=== PATIENT | male | born 1950 | race Caucasian/White ===

== ENCOUNTER 2025-06-20 15:09 | Inpatient (IN) | payer OTHER, SELFPAY ==
[2025-06-19 20:39] VITALS: BP 132/63
[2025-06-19 21:31] VITALS: BMI 22.2
[2025-06-19 21:46] LABS: Hematocrit 40.1 % (39.0-52.0); Hemoglobin 13.5 g/dL (13.0-18.0); Mean Corp Hgb Conc. 33.7 g/dL (33.0-37.0); Mean Corpuscular Volume 92.2 fL (80.0-94.0); Nucleated Red Blood Cells % 0 % (-); Platelet Count 263 10^3/uL (130-400); Red Cell Dist. Width 13.9 % (11.5-14.5)
[2025-06-19 22:22] LABS: ALT (SGPT) < 10 U/L (0-50); AST (SGOT) 14 U/L (17-59); Albumin 4.2 g/dl (3.5-5.0); Alkaline Phosphatase 77 U/L (38-126); Blood Urea Nitrogen 21 mg/dl (9-20); Calcium 9.5 mg/dl (8.4-10.2); Carbon Dioxide 30 mmol/L (22-30); Chloride 105 mmol/L (98-107); Estimated Creatinine Clearance 81 ml/min; Glucose 104 mg/dl (70-99); Potassium 4.1 mmol/L (3.5-5.1); Sodium 139 mmol/L (135-145); Total Protein 7.2 g/dl (6.3-8.2); eGFR > 60.00
[2025-06-19 23:00] VITALS: BP 139/68
[2025-06-20] VITALS (21 sets, daily range): BP systolic 86–142; BP diastolic 52–94; PULSE 76–78; O2SAT 99
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
[2025-06-20 01:11] LABS: Urine Character Clear (Clear)
--- NOTE | 2025-06-20 01:28 | EDRN ---
Pt does not know all the names/dosages of his medications. Old record from 2020 shows Atorvastatin, Carbidopa-Levodopa, clonazepam, Entacapone, Mirapes, omeprazole, trazodone, lisinopril, paxil, pravastatin
[2025-06-20] MEDS: ANCEF 10 IV ×3 (02:04→17:21)
[2025-06-20 03:11] LABS: Urine Squamous Cell None seen /LPF (Few)
[2025-06-20 03:12] LABS: Urine White Cell 0-2 /HPF (0-5)
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
[2025-06-20 05:34] LABS: Hematocrit 35.7 % (39.0-52.0); Hemoglobin 12.0 g/dL (13.0-18.0); Mean Corp Hgb Conc. 33.6 g/dL (33.0-37.0); Mean Corpuscular Volume 92.7 fL (80.0-94.0); Platelet Count 234 10^3/uL (130-400); Red Cell Dist. Width 13.9 % (11.5-14.5)
[2025-06-20] MEDS: NSS 1000 IV ×3 (05:43→17:21)
[2025-06-20 05:55] LABS: Blood Urea Nitrogen 18 mg/dl (9-20); Calcium 8.9 mg/dl (8.4-10.2); Carbon Dioxide 31 mmol/L (22-30); Chloride 108 mmol/L (98-107); Estimated Creatinine Clearance 92 ml/min; Glucose 98 mg/dl (70-99); Potassium 3.4 mmol/L (3.5-5.1); Sodium 141 mmol/L (135-145); eGFR > 60.00
--- NOTE | 2025-06-20 06:08 | PTCARENOTE ---
Pt extremely agitated. Pt demanding to go home, does not understand why he is in the hospital. Multiple attempts made to explain need for hospitalization. Pt states there is nothing wrong with him and he is able to drive himself home. Continued
emotional support and reality orientation provided. Pt finally settled down and resting. IVF infusing as ordered. Will continue to monitor.
[2025-06-20] MEDS: HALDOL 1 MG IV (06:34)
[2025-06-20] MEDS: VALIUM INJECTION 2 MG IV ×2 (06:45→18:59)
[2025-06-20 06:59] LABS: Cortisol, Random 10.3 ug/dl
[2025-06-20] MEDS: HEPARIN SC (07:56)
[2025-06-20] MEDS: ATIVAN 0.5 MG PO (07:57)
--- NOTE | 2025-06-20 08:00 | PTCARENOTE ---
report received from nightstnft RN, pt agitated- 1:1 at bedside. pt stated 'that he wants to ' and 'please just kill me' hospitalist notified order for pysch consult and pt given one time dose of ativan
--- NOTE | 2025-06-20 08:30 | PHANOTE ---
med rec note- called family on file whose on her way to help with medication list. patient comes in confused with tablets . I.D what i could in [facility] but most of the tablets have gunk on them. unable to finish med rec until family comes by
[2025-06-20] MEDS: SINEMET CR 50/200 (EXTENDED RELEASE) 1 TABLET PO ×2 (08:47→10:46)
[2025-06-20] MEDS: COMTAN 200 MG PO ×3 (08:47→22:44)
--- NOTE | 2025-06-20 09:31 | PTOTSP ---
Speech Therapy Evaluation:
Assessment of oropharyngeal swallow limited due to decreased participation in evaluation and limited acceptance of PO intake. Pt with chronic risk factor of dysphagia including Parkinson's, acutely compounded by change in mental status. Pt accepted
thin liquid x1 and regular cracker x1. No overt s/sx of aspiration, however cannot r/o pharyngeal component given above mentioned risk factors and CXR with pneumonia versus atelectasis. Suspect bedside performance likely a reflection of recent dose
of Ativan. Pt afebrile, WBC WNL, on room air, and without dysphagia hx.
Recommend:
1. Diet downgrade to IDDSI 6 (soft and bite sized solids); continue thin liquids
2. Only feed when fully awake, alert, accepting
3. Medications as best tolerated, can trial whole vs crushed in puree if ongoing difficulty noted
4. Strict aspiration precautions
5. 1:1 supervision with intake
6. BIOMETRIC FINGERPRINTING TECHNICIAN to follow to monitor tolerance of diet, determine need for further modifications and/or advancement, and determine if pt would benefit from instrumental assessment. Pt not appropriate for instrumental assessment at this time given current
mental status with decreased participation
--- NOTE | 2025-06-20 09:45 | W.PN.UPDATE ---
Update Note
Progress Note Update
patient admitted 445 AM
agitated; received PO Ativan with improvement. Briefly was on restraints
per RN, patient expressed wanting to kill himself but no plan
he is unsure why he is in hospital; cannot recall details leading up to hospitalization
Assessment:
Altered Mental Status/Confusion
Frequent Falls
Parkinson's Disease
- unclear etiology, acute process vs progression of disease vs development of chronic neurodegeneration such as dementia.
- infectious workup so far negative
- check metabolic workup
- CT head: negative
- med verification pending; for now continue Sinemet and Entacapone
- PT/OT
- ST: IDDSI 6 diet
Suicidal ideation
Agitation acutely
- prn restraints
- prn Ativan
- avoid Haldol in PD setting
- psych evaluation; may consider Seroquel
LLE Edema
- possible cellulitis versus post-traumatic swelling (reports lateral knee bruise / hematoma days ago).
- RN to demarcate area of erythema
- DVT study negative
- continue Ancef, day 1
- elevation/compression
- wound care evaluation
Benign Hypertension
- BP on the lower side in the ED.
- continue IVF
Spinal Stenosis
DDD
Chronic Pain
- Has spine stimulator in place.
- Multiple patches on the back - ? type. Clarify meds with pharmacy in the AM.
- Remove patches for this evening to avoid oversedation, etc.
Hypokalemia - replete prn
DVT Prophylaxis: SC Heparin
Code Status: Full
pending med rec
--- NOTE | 2025-06-20 10:14 | CM ---
CM reviewed chart, attempted to see pt in ED but he was sleeping. Has 1:1. I called his friend Holly and left a message requesting a call back.
[2025-06-20] MEDS: ZONEGRAN 25 MG PO ×2 (10:38→21:08)
[2025-06-20] MEDS: KCL 20 MEQ PO (10:38)
[2025-06-20] MEDS: SINEMET 25-100 1 TABLET PO ×4 (10:39→22:41)
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
--- NOTE | 2025-06-20 15:27 | CM ---
CM reviewed chart, pt lives alone in first floor apartment, no DARREL.
Independent in ADLs and personal care at baseline, ambulates with cane. Has been having frequent falls per friends, pt denies falls.
Currently has 1:1
No hx VN/SNF
PCP; Tyler Montes
Pharmacy: Pt unsure
Per PT/OT, pt recommended for SNF. CM will continue to follow for all discharge planning needs pending outcome of ongoing medical evaluation.
[2025-06-20 15:36] LABS: Glucose - Point of Care 108 mg/dl (70-99)
--- NOTE | 2025-06-20 15:45 | WOUNDNOTE ---
[facility] RN NOTE: Reviewed chart, met with patient. Patient was calm at time of assessment. He has a superficial scabbed abrasion to right knee and scattered abrasions on bilateral lower extremities. Heels intact. Sacrum is blanchable and intact. Patient
demonstrates poor mobility in bed. Local wound care provided to knee as ordered and border foam applied to sacrum for protection. Heels off-loaded with pillows under calves. This screen writer spoke to on-call Director Client, Juan R and asked for
delivery of air mattress. VERONIKA Feng made aware. Orders updated and confirmed with Hospitalist. Will sign off.
--- NOTE | 2025-06-20 16:08 | PTCARENOTE ---
patient arrived to unit. patient is drowsy and unable to answer orientation questions. patient in NAD. IV fluids continued and tele monitor placed. bed alarm in place. call medina in reach. will continue to monitor.
--- NOTE | 2025-06-20 19:09 | PTCARENOTE ---
code purple called. patient has family at bedside and states he wants to leave. patient is unable to redirected. security is at bedside. MD Arreaga assessing patient at bedside. Patient and family agrees to PRN valium and will remain at the hospital.
call medina in reach. safety maintained.
[2025-06-20] MEDS: HEPARIN 5000 UNITS SC (21:06)
[2025-06-20] MEDS: SINEMET CR 50/200 (EXTENDED RELEASE) 2 TABLET PO (21:07)
[2025-06-21] VITALS (8 sets, daily range): BP systolic 84–169; BP diastolic 45–98; PULSE 66–72; O2SAT 100; BMI 21.9
[2025-06-21] MEDS: ANCEF 10 IV ×2 (03:41→10:48)
[2025-06-21 05:46] LABS: Hematocrit 39.0 % (39.0-52.0); Hemoglobin 13.2 g/dL (13.0-18.0); Mean Corp Hgb Conc. 33.8 g/dL (33.0-37.0); Mean Corpuscular Volume 92.2 fL (80.0-94.0); Platelet Count 246 10^3/uL (130-400); Red Cell Dist. Width 13.8 % (11.5-14.5)
[2025-06-21 06:16] LABS: Ammonia < 9 umol/L (9-30)
[2025-06-21 06:33] LABS: Blood Urea Nitrogen 10 mg/dl (9-20); Calcium 8.6 mg/dl (8.4-10.2); Carbon Dioxide 25 mmol/L (22-30); Chloride 111 mmol/L (98-107); Estimated Creatinine Clearance 106 ml/min; Glucose 91 mg/dl (70-99); Potassium 3.8 mmol/L (3.5-5.1); Sodium 141 mmol/L (135-145); eGFR > 60.00
[2025-06-21 07:39] LABS: Folate 2.5 ng/ml (2.76-20); Vitamin B12 161 pg/ml (239-931)
[2025-06-21] MEDS: COMTAN 200 MG PO ×2 (09:13→21:30)
[2025-06-21] MEDS: ZONEGRAN 25 MG PO ×2 (09:13→21:30)
[2025-06-21] MEDS: HEPARIN 5000 UNITS SC (09:14)
[2025-06-21] MEDS: SINEMET CR 50/200 (EXTENDED RELEASE) 2 TABLET PO (09:14)
[2025-06-21] MEDS: SINEMET 25-100 1 TABLET PO (09:14)
[2025-06-21] MEDS: NSS 1000 IV (09:15)
--- NOTE | 2025-06-21 11:19 | W.PN.HOSP.TC ---
Today's Communication/Plan
-
replete B12/Folate
Neuro eval to consider PD med titration
continue Ancef
PT/OT ongoing
d/w friend Christy
Assessment / Plan
Assessment / Plan
Assessment:
Altered Mental Status/Confusion
Frequent Falls
Parkinson's Disease
- unclear etiology, acute process vs progression of disease vs development of chronic neurodegeneration such as dementia.
- infectious workup so far negative
- Metabolic workup with low Folate and low B12 - replete
- CT head: negative
- med verification pending; for now continue Sinemet and Entacapone
- Neuro consult
- PT/OT - patient prefers home despite SNF recommendation
- ST: IDDSI 6 diet
Suicidal ideation
Agitation acutely
- prn restraints
- prn Ativan
- avoid Haldol in PD setting
- psych following
LLE Edema
- possible cellulitis versus post-traumatic swelling (reports lateral knee bruise / hematoma days ago).
- RN to demarcate area of erythema
- DVT study negative
- continue Ancef, day 1
- elevation/compression
- wound care evaluation
Benign Hypertension
- BP on the lower side in the ED.
- cap IVF
Spinal Stenosis
DDD
Chronic Pain
- Has spine stimulator in place.
- Multiple patches on the back - ? type. Clarify meds with pharmacy in the AM.
- Remove patches for this evening to avoid oversedation, etc.
Hypokalemia - replete prn
History of prostate cancer
DVT Prophylaxis: SC Heparin
Code Status: Full
Anticipated Discharge: > 48 hours
Subjective/Interval History
-
Date of Service: June 21, 2025
understands SNF recommendation but declines - stating he wants to do home therapy and sit in a wheelchair
agreeable to Neurologist evaluation
Objective Data
-
Labs:
Laboratory Results
06/21/25
05:33
WBC 7.5
Hgb 13.2
Hct 39.0
Plt Count 246
Sodium 141
Potassium 3.8
Chloride 111 H
Carbon Dioxide 25
BUN 10
Creatinine 0.6 L
Glucose 91
Calcium 8.6
Vital Signs:
Vital Signs
Temp Pulse Resp BP Pulse Ox
98.2 F 69 18 143/73 98
06/21/25 07:00 06/21/25 07:00 06/21/25 07:00 06/21/25 07:00 06/21/25 07:00
I&O
06/20/25 06/21/25 06/22/25
06:59 06:59 06:59
Intake Total 1240 / 1240
Output Total 970 / 970
Balance 270 / 270
Physical Exam
-
General: No Apparent Distress
HEENT: Normocephalic and Atraumatic
Respiratory: Negative Wheezes
Cardiac: Regular Rhythm and S1/S2
GI: Soft
Neuro: Tremors
Hematologic / Lymphatic: No Lymphadenopathy
Psych: Calm
Data Reviewed
-
Total Time Spent with Patient (in minutes): 45
Labs: Labs Reviewed by me
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
[2025-06-21] MEDS: SINEMET 25-100 2 TABLET PO ×2 (12:35→21:30)
[2025-06-21] MEDS: MIRAPEX, GENERIC 0.5 MG PO ×2 (12:35→21:30)
[2025-06-21] MEDS: FOLVITE 1 MG PO (12:36)
[2025-06-21] MEDS: VITAMIN B-12 1000 MCG PO (13:42)
--- NOTE | 2025-06-21 17:33 | CM ---
Patient seen bedside.
Patient insisting he is going home. refused skilled rehab.
Patient agreeable to home with VN.
Referral for [facility] placed.
MD will be up to see patient.
Plan: home with VN
[2025-06-21] MEDS: COMTAN PO ×2 (17:39→17:40)
[2025-06-21] MEDS: MIRAPEX, GENERIC PO (17:39)
[2025-06-21] MEDS: ANCEF IV (17:39)
[2025-06-21] MEDS: SINEMET 25-100 PO (17:40)
--- NOTE | 2025-06-21 17:46 | W.PN.UPDATE ---
Update Note
Progress Note Update
Called to see patient due to patient wanting to leave AGAINST MEDICAL ADVICE. Risks of leaving explained to patient. These include but are not limited to respiratory failure, severe injury from falls, injury or to himself or others if he
continues to drive. from not following medical direction and treatment. He has been instructed NOT TO DRIVE.
Patient has signed the AGAINST MEDICAL ADVICE form.
--- NOTE | 2025-06-21 19:30 | PTCARENOTE ---
Assumed care of patient from previous RN. Patient sitting in chair, friend at bedside. Patient appears to be calm and cooperative. Eating dinner meal and asking for utensils as it appears patient is eating dinner with a folded in half business card.
Call [facility] at bedside. Will monitor.
--- NOTE | 2025-06-21 19:30 | PTCARENOTE ---
At approximately 17:30, patient expressed that he would be getting picked up by Christy at 18:30 and he would no longer stay at the hospital. Tried to explain to patient why he still required hospitalization and he still expressed that he would be
leaving. Also refused evening medications. Contacted covering provider, Dr. Ferrer and Dr. Ferrer came to bedside. Patient signed AMA form.
When Christy arrived, Christy expressed that she did not feel safe taking the patient out of the hospital and also agreed that the patient should stay. Patient attempted to call other family members including his sister who lives in [place] to see if
they would come take him home. All family/friends seem to be in agreement that the patient should stay.
At this time, patient agreeable to stay the night. However, is hopeful his sister will come for him in the morning. Contact information for his nephew, Rylan, and his sister, Jessica, obtained and shared with medical team taking care of patient.
All information relayed to case management, psychiatry, covering provider and nursing marking room supervisor via TT.
[2025-06-21] MEDS: SINEMET CR 50/200 (EXTENDED RELEASE) PO (19:50)
--- NOTE | 2025-06-21 21:30 | PTCARENOTE ---
Patient refusing PM care/oral hygiene and 2000pm medications at this time. Will continue to attempt to provide to patient. Will monitor.
[2025-06-21] MEDS: HEPARIN SC (21:32)
[2025-06-22] MEDS: ANCEF 10 IV ×2 (02:45→09:53)
[2025-06-22 03:11] VITALS: BP 137/78
[2025-06-22 06:00] VITALS: BMI 21.5
[2025-06-22 07:44] VITALS: BP 151/68
[2025-06-22] MEDS: SINEMET CR 50/200 (EXTENDED RELEASE) 2 TABLET PO (08:19)
[2025-06-22] MEDS: COMTAN 200 MG PO ×2 (08:20→13:14)
[2025-06-22] MEDS: ZONEGRAN 25 MG PO (08:20)
[2025-06-22] MEDS: SINEMET 25-100 2 TABLET PO ×2 (08:20→13:12)
[2025-06-22] MEDS: VITAMIN B-12 1000 MCG PO (08:20)
[2025-06-22] MEDS: FOLVITE 1 MG PO (08:21)
[2025-06-22] MEDS: HEPARIN 5000 UNITS SC (08:21)
[2025-06-22] MEDS: MIRAPEX, GENERIC 0.5 MG PO ×2 (08:21→16:22)
[2025-06-22 09:06] LABS: Hematocrit 42.3 % (39.0-52.0); Hemoglobin 14.2 g/dL (13.0-18.0); Mean Corp Hgb Conc. 33.6 g/dL (33.0-37.0); Mean Corpuscular Volume 93.0 fL (80.0-94.0); Platelet Count 274 10^3/uL (130-400); Red Cell Dist. Width 14.0 % (11.5-14.5)
[2025-06-22 09:40] LABS: Blood Urea Nitrogen 13 mg/dl (9-20); Calcium 8.9 mg/dl (8.4-10.2); Carbon Dioxide 26 mmol/L (22-30); Chloride 108 mmol/L (98-107); Estimated Creatinine Clearance 104 ml/min; Glucose 89 mg/dl (70-99); Potassium 4.2 mmol/L (3.5-5.1); Sodium 140 mmol/L (135-145); eGFR > 60.00
--- NOTE | 2025-06-22 13:57 | W.PN.HOSP.TC ---
Today's Communication/Plan
-
dc home/VN
Assessment / Plan
Assessment / Plan
Assessment:
Altered Mental Status/Confusion
Frequent Falls
Parkinson's Disease
- unclear etiology, acute process vs progression of disease vs development of chronic neurodegeneration such as dementia.
- infectious workup so far negative
- Metabolic workup with low Folate and low B12 - replete orally
- CT head: negative
- Neuro consulted and adjusted meds. continue Sinemet, Comton and Mirapex
- PT/OT - patient prefers home despite SNF recommendation
- ST: IDDSI 6 diet
Suicidal ideation
Agitation acutely
- prn restraints
- prn Ativan
- avoid Haldol in PD setting
- psych following
LLE Edema
- possible cellulitis versus post-traumatic swelling (reports lateral knee bruise / hematoma days ago).
- RN to demarcate area of erythema
- DVT study negative
- continue Ancef, day 3; dc on Keflex for 7 further days
- elevation/compression
- wound care evaluation
Benign Hypertension
- BP on the lower side in the ED.
- cap IVF
Spinal Stenosis
DDD
Chronic Pain
- Has spine stimulator in place.
- Multiple patches on the back - ? type. Clarify meds with pharmacy in the AM.
- Remove patches for this evening to avoid oversedation, etc.
Hypokalemia - replete prn
History of prostate cancer
DVT Prophylaxis: SC Heparin
Code Status: Full
More than 30 minutes spent in discharge including
Final examination of the patient
Summarizing hospital stay
Instructions for continuing care to all relevant caregivers
Preparation of discharge records, prescriptions, and referral forms
Total time spent (in minutes): 41
Anticipated Discharge: Today
Subjective/Interval History
-
Date of Service: June 22, 2025
resting comfortably, no complaints at present
Objective Data
-
Labs:
Laboratory Results
06/22/25 06/22/25
08:13 08:14
WBC 8.0
Hgb 14.2
Hct 42.3
Plt Count 274
Sodium 140
Potassium 4.2
Chloride 108 H
Carbon Dioxide 26
BUN 13
Creatinine 0.6 L
Glucose 89
Calcium 8.9
Vital Signs:
Vital Signs
Temp Pulse Resp BP Pulse Ox
98.3 F 70 21 151/68 100
06/22/25 07:44 06/22/25 07:44 06/22/25 07:44 06/22/25 07:44 06/22/25 07:44
I&O
06/21/25 06/22/25 06/23/25
06:59 06:59 06:59
Intake Total 1240 / 1240 895 / 895
Output Total 970 / 970 700 / 700
Balance 270 / 270 195 / 195
Physical Exam
-
General: No Apparent Distress
HEENT: Normocephalic and Atraumatic
Respiratory: Negative Wheezes
Cardiac: Regular Rhythm and S1/S2
GI: Soft
Neuro: AO x 3
Psych: Calm
Data Reviewed
-
Total Time Spent with Patient (in minutes): 42
Labs: Labs Reviewed by me
--- NOTE | 2025-06-22 14:06 | W.DS.TRANS ---
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
-
Discharge Instructions:
Discharge Diagnosis/Procedures Altered mental status, confusion, frequent falls
, Parkinson's, suicidal ideation, left lower
extremity edema, benign hypertension, spinal
stenosis, cellulitis
Diet As tolerated
Activity As tolerated
Driving Restrictions No driving
Bathing Restrictions None
Other Services VN,PT,OT
Instructions:
Stand-Alone Forms:
Changes to Home Medications: No
Discharge Medications:
DC Medications w/original date entered in [employer]
atorvastatin 20 mg tablet 20 mg PO DAILY 06/20/25
clonazepam 1 mg tablet 2 mg PO HS 06/20/25
Held on 06/21/25. Instructions: discuss with your family doctor about restarting this med
glycopyrrolate 1 mg tablet 1 mg PO DAILY 06/20/25
zonisamide 25 mg capsule 25 mg PO BID 06/20/25
carbidopa 25 mg-levodopa 100 mg tablet 2 tab PO QID #60 tabs 06/21/25
carbidopa ER 50 mg-levodopa 200 mg tablet,extended release 2 tab PO BID #60 tabs 06/21/25
cephalexin 500 mg capsule 1,000 mg (2 x 500 mg) PO BID 7 days #28 caps 06/21/25
cyanocobalamin (vitamin B-12) 1,000 mcg tablet (Vitamin B-12) 1,000 mcg PO DAILY #0 tabs 06/21/25
entacapone 200 mg tablet 200 mg PO QID #60 tabs 06/21/25
folic acid 1 mg tablet 1 mg PO DAILY #0 tabs 06/21/25
pramipexole 0.5 mg tablet 0.5 mg PO TID #30 tabs 06/21/25
Home Medication Changes
Pending Results: No
Total time spent discharging patient (in min): 42
--- NOTE | 2025-06-22 14:32 | W.PN.UPDATE ---
Update Note
Progress Note Update
Patient at this point is not insisting on leaving but at the same time is not committing to go to rehab. He does not recognize he cannot function independently and that driving in particular is dangerous given his condition. He admitted he had an
aggressive episode here in the hospital but states he cannot recall it.
I tried to assess his cognition and he does have poor immediate recall but was oriented in all spheres. Denies any depression, mood lability, hopelessness or suicidal thoughts.
I agree he needs to go to rehab and should he insist on leaving it should be AMA. He does not meet criteria for involuntary psychiatric commitment.
--- NOTE | 2025-06-22 14:47 | W.DCSUMMARY ---
Discharge Summary
Discharge Data
Date of Admission: 06/20/25
Date of Discharge: 06/22/25
-
Pending Results: No
Hospital Course
75 y/o M hx of Parkinsons disease with recent history of many falls, presented to ER on 06/20 for confusion and agitation. The workup related to change in mental status was negative. He was evaluated by psychiatry due to expressing suicidal thought
while agitated; psychiatry cleared him without requiring any involuntary psychiatric commitment. He was evaluated by Neurology who adjusted the Parkinsons meds with improvement in patients tremors. He was evaluated by PT and recommended for rehab.
He adamantly refused SNF and instead agreed to home/VN. Patient expressed understanding of the risk of not going to SNF at this time; including further falls and possible traumatic injuries. These concerns were relayed also to patients family. He
will follow up with PCP and Neurology next week.
Discharge Plan
-
Patient Disposition: Home with Home Care
Discharge Diagnosis/Procedures: Altered mental status, confusion, frequent falls, Parkinson's, suicidal ideation, left lower extremity edema, benign hypertension, spinal stenosis, cellulitis
Condition: Fair
Diet: As tolerated
Activity: As tolerated
Driving Restrictions: No driving
Bathing Restrictions: None
Other Services: VN, PT and OT
Activity Restrictions/Additional Instructions:
Wound Care Instructions Right Knee Wound- Clean with saline, apply adaptic and silicone border foam. Change Q 48 hours and PRN drainage.
Air Bed
Turning schedule
Keep heels off-loaded with pillow or air cushion under calves
Referrals:
Anthony Coello MD [Active, Neurology] - in one week
Tyler Montes DO [Family Provider, Internal Medicine] - in less than 1 week
Additional Discharge Medication Instructions: see your Neurologist Dr. Coello within the next 2 weeks - he will need to provide you with additional scripts for your parkinsons meds
Prescriptions:
New
carbidopa-levodopa 50-200 mg Tablet Extended Release
2 tab PO BID Qty: 60 0RF
cyanocobalamin (vitamin B-12) [Vitamin B-12] 1,000 mcg Tablet
1,000 mcg PO DAILY Qty: 0 0RF
pramipexole 0.5 mg Tablet
0.5 mg PO TID Qty: 30 0RF
entacapone 200 mg Tablet
200 mg PO QID Qty: 60 0RF
carbidopa-levodopa 25-100 mg Tablet
2 tab PO QID Qty: 60 0RF
folic acid 1 mg Tablet
1 mg PO DAILY Qty: 0 0RF
cephalexin 500 mg capsule
1,000 mg PO BID 7 Days Qty: 28 0RF
Continued
glycopyrrolate 1 mg tablet
1 mg PO DAILY
zonisamide 25 mg Capsule
25 mg PO BID
atorvastatin 20 mg tablet
20 mg PO DAILY
Held
clonazepam 1 mg tablet
2 mg PO HS
Hold Instructions: discuss with your family doctor about restarting this med
Discontinued
carbidopa-levodopa 25-250 mg Tablet
2 tab PO QID
carbidopa-levodopa 50-200 mg Tablet Extended Release
2 tab PO BID
entacapone 200 mg Tablet
200 mg PO TID
pramipexole 1.5 mg Tablet
1.5 mg PO
carbidopa-levodopa 25-100 mg tablet
1 tab PO QID
Discharge Orders:
Discharge Patient (As Directed); Ordered 06/22/25
Ordered By: Ally Worthy
Discharge Date and Time
Print Language: KINYARWANDA
[2025-06-22 16:10] VITALS: BP 118/61
--- NOTE | 2025-06-22 16:47 | CM ---
Patient medically stable for discharge. Was going to leave AMA. Did not want to wait for DME. Spoke with patient who stated that he does not have a ride home and he needs transport set up. Confirmed Address: [facility] [address] [place]
[id number].
Medical necessity completed due to hx of combative behavior. Transfer sheet with confirmed address provided to [employer] community manager. IMM signed, reviewed and on chart.
Plan: Case management will continue to follow and assist with discharge planning. Home no needs.
== END 2025-06-22 18:23 | disposition home or self-care (01) | DRG 57 ==
LOC: 3 WEST ACU 15:09
PROVIDERS: Emergency Medicine; ADMITTING PHYSICIAN Hospitalist; ATTENDING PHYSICIAN Internal Medicine; CONSULT PHYSICIAN Psychiatry & Neurology Neurology; CONSULT PHYSICIAN Psychiatry & Neurology Psychiatry; EMERGENCY PHYSICIAN Emergency Medicine; FAMILY PHYSICIAN Internal Medicine
DX: G20.A1 Parkinson's disease without dyskinesia, without mention of fluctuations (principal); R45.851 Suicidal ideations; L03.115 Cellulitis of right lower limb; E87.6 Hypokalemia; I10 Essential (primary) hypertension; G89.29 Other chronic pain; M48.00 Spinal stenosis, site unspecified; R29.6 Repeated falls; R45.1 Restlessness and agitation; R60.0 Localized edema; Z85.46 Personal history of malignant neoplasm of prostate; Z96.82 Presence of neurostimulator; Z79.899 Other long term (current) drug therapy
CPT/HCPCS: 70450; 71046; 80048; 80053; 81003; 81015; 82140; 82533; 82607; 82746; 82962; 84443; 85025; 85027; 92526; 92610; 93005; 93971; 97116; 97167; 97530